=== PATIENT | female | born 1975 | race Caucasian/White ===

== ENCOUNTER 2024-05-12 20:27 | Inpatient (IN) | payer MEDICAID, SELFPAY ==
[2024-05-12 21:14] VITALS: BMI 37.2
[2024-05-12 21:58] VITALS: BP 107/56; PULSE 73; RESP 16; TEMP 36.6; O2SAT 95
[2024-05-12] MEDS: Nicotine Polacrilex 2 MG GUM 4 MG BUCCAL (22:52)
[2024-05-12] MEDS: Acetaminophen 325 MG TABLET 650 MG PO (23:00)
[2024-05-12] MEDS: LORazepam 0.5 MG TABLET PO (23:01)
--- NOTE | 2024-05-13 00:24 | PC.ADMIT ---
Pily Thompson is a 48yo female, admitted on a CV to M3 from [facility] ED for treatment of psychosis/bipolar d/o. Pt has history of SI,manic behavior and psychosis with multiple inpatient admissions. Pt was presented at the ER after she was caught trespassing, evidently she had a shrine set up in her old home, jumped in the shower, was talking to herself, had delusional statements. She denies toxic ingestions or suicidal/homicidal ideation. Toxic screen is positive to [place], denies use of any other substance but states she takes liquor 1-2 times per month. On unit admission process, Pt was initially calm and cooperative but later became irritable and uncooperative with this leader writer. She states I am not psychotic and I will not take any antipsychotics meds, I have a diagnosis of bipolar d/o, I am dehydrated, very tired and want to rest now . She denies SI/HI/AH/VH. She was very irritable and told the RN to get out of her room when offered to sign admission papers. Pt refused to fill/sign any release of information forms/menu/my contact list. Skin check done and v/s stable. Pt reported being safe on the unit and place on 15 minutes check for Safety.
[2024-05-13 07:40] VITALS: BP 126/92; PULSE 86; RESP 14; TEMP 36.7; O2SAT 98
--- NOTE | 2024-05-13 08:48 | HO.PSYADMNOT ---
HPI Date of Service: 05/13/24 Chief Complaint: Schizophrenia Sources of Information: patient interviewed, chart reviewed and crisis/core team assessment reviewed HPI Subjective Notes: Conditional Voluntary Healthcare Proxy: No Guardianship: No Medical Problems Affecting Mental Status: No Narrative: Pily is a 48-year-old white, woman who states that she was kicked out of her housing. She had lived in [place]. 911 was called on her for trespassing on the property that she used to live in. The police when there and found her there. She had made a trying with crosses and was talking to herself. When the police arrived she jumped into the shower and was observed making delusional statements. She was initially not cooperative but when taken to the emergency room she calmed down. She herself is not able to give much pertinent or reliable history. She is quite irritable, angry and refused to answer many questions. Several times she would get up, go to the door but would come back but essentially not able to participate much. She denies any AVH but appears to be responding to internal stimuli. She denies SI/HI. Prior history could not be obtained. She has very little to no insight into her psychiatric problems. She has not able to give much information pertaining to her medication history, what [facility] she may be connected to. She wanted me to put down the name of her Rabbi and somebody else from her orthodox/worship in [facility]: Rabbi Ifeoma Harding and Deyvi Lyons Past Psychiatric History: Several inpatient and outpatient treatment Medical Evaluation Reviewed: Hospitalist Eval Pending REPLACED BY [facility] Family History: Unobtainable Social History: Unobtainable Substance History: Marijuana use Trauma History: Unobtainable Diagnostics Vital Signs (24Hr): Vital Signs - 24 hr 05/12/24 21:58 Temperature 98 F Pulse Rate 73 Respiratory Rate 16 Blood Pressure 107/56 L Pulse Oximetry 95 Oxygen Delivery Method Room Air BMI result Body Mass Index 37.2 Labs 05/13/24 07:57 Labs: Patient had a low potassium in the emergency room, 3.2 which later came up and a new 1 is ordered Meds/Allergies Meds Home Medications ?Medication ?Instructions ?Recorded ?Confirmed ?Type dextroamphetamine-amphetamine 30 30 mg PO DAILY 05/12/24 05/12/24 History mg tablet (Adderall) gabapentin 300 mg capsule 300 mg PO BID pain 05/12/24 05/12/24 History lithium carbonate 450 mg 450 mg PO BID depressive disorder 05/12/24 05/12/24 History tablet,extended release Allergies Allergies Allergy/AdvReac Type Severity Reaction Status Date / Time haloperidol Allergy Unknown Verified 05/12/24 21:13 Mental Status Exam Mental Status Exam Narrative: Patient was seen the morning after her admission. She is alert, oriented to person and place. Speech is pressured. She denies AVH but appears to be responding to internal stimuli. Religiously preoccupied. No SI/HI. Cognitively is very disorganized and could not be assessed formally. Judgment is impaired secondary to current mental status Assessment & Plan Assessment & Plan (1) Schizoaffective disorder, bipolar type: Status: Acute Code(s): F25.0 - Schizoaffective disorder, bipolar type Plan Patient meets criteria for IP LOC for safety and treatment. [place] was resumed and Zyprexa 10 mg q.h.s. and p.r.n. ordered. Admission workup to be done. Outpatient referral to be made. She has here on a CV Patient educated on: diagnosis, medication risk/benefits and substance abuse Reason for continued inpatient stay Substantial Risk for: inability to function and rapid decompensation Statement Statement: I have reviewed the history and physical and performed a pertinent examination on my patient. No changes have occurred unless specified. If the History and Physical was not performed prior to admission, the Hospitalist's service will be consulted for completing the admission physical. Time Spent With Patient Time: Total time managing care of this patient today ____ minutes.
[2024-05-13] MEDS: Lithium Carbonate ER 450 MG TABLET.ER PO ×2 (08:50→22:43)
[2024-05-13] MEDS: Gabapentin 300 MG CAPSULE PO ×2 (08:50→22:43)
[2024-05-13 09:07] LABS: Alanine Aminotransferase 14 U/L (0-31); Alkaline Phosphatase 60 U/L (39-117); Anion Gap 12 (12-20); Aspartate Amino Transferase 14 U/L (5-31); Bilirubin Total 0.8 mg/dL (0.0-1.0); Blood Urea Nitrogen 7 mg/dL (9-16); Calcium 9.4 mg/dL (8.4-10.2); Carbon Dioxide 25 mmol/L (22-29); Chloride 106 mmol/L (96-108); Cholesterol 158 mg/dL (<200); Creatinine Clr Calc Pharmacy 124.4; Estimated Glomerular Filt Rate > 60; Glucose Fasting 98 mg/dL (60-99); HDL Cholesterol 46 mg/dL (>40); LDL Cholesterol Calculated 78 mg/dL (<100); Potassium 3.9 mmol/L (3.3-5.1); Sodium 139 mmol/L (135-145); Total Protein 6.8 g/dL (6.5-8.0); Triglycerides 171 mg/dL (<150)
[2024-05-13 09:23] LABS: TSH reflex Free T4 0.75 uIU/mL (0.32-4.0)
[2024-05-13] MEDS: Nicotine 21 MG PATCH.TD24 TRANSDERMA (09:50)
[2024-05-13] MEDS: Amphetamine Mixed Salts 10 MG TABLET 15 MG PO ×2 (09:51→13:37)
[2024-05-13 10:28] LABS: Estimated Average Glucose 111 mg/dL; Hemoglobin A1C 132.4446 umol/L; Hemoglobin A1c % 5.5 % (<6.0)
--- NOTE | 2024-05-13 11:20 | HO.PM.IMCN ---
History of Present Illness Data of Consult Service Date: 05/13/24 Primary Care Provider: Unknown Physician HPI Reason for consult: Admission H&P Pt is a 48-year-old female with a PMH significant for bipolar disorder who is admitted to M3 psychiatry unit for acute psychosis and disorganized behavior. Patient comes from [facility] in [place], [place] where police Department was called on patient for trespassing. Police Department found patient in her old house in the shower. Patient had apparently also set up some kind of spiritism shrine in the house. Medical consult for admission H&P. Patient seen and evaluated where she appears actively manic, requesting to 1st be able to drink liquid and pressure teeth before starting any interview and exam. Patient initially states is overall healthy, but appears somatically oriented and soon complains of possible undiagnosed MS, weakness in her lower extremities, ?valvular issues? that ?do not really bother me?, among a whole litany of other vague complaints. Patient's speech is pressured and rambling. Patient also possible visual hallucinations, seeing people in the corner of the room. Reports she does not currently have a PCP in the community. Labs reviewed, grossly unremarkable. Vital signs stable. Review of Systems Review of Systems: Unable to obtain due to patient's active [facility] History (Updated 05/13/24 @ 13:42 by PAULETTE Gomes) Hx of cholecystectomy Social History Household Members: None Housing: Homeless Do you presently have visiting nurse or other home services: No Patient Tobacco Use Status: Current everyday Tobacco user Tobacco use type: Cigarette Smoked in Last 30 Days: Yes e-Cigarette/Vaping Use: Never Used Patient Interested in Nicotine Replacement: Yes Patient Given Instructions on How to Stop Smoking: No Second Hand Smoke Exposure: No Use of substances other than those prescribed or required for medical reasons: Yes Substance Use Type: Marijuana Substance Use Frequency: Daily Last Used Substance: Days (ago) Currently Displaying Signs/Symptoms of Drug Intoxication Withdrawal: No Any prior treatment program specific to substance use: No Have you been hit, kicked, punched, or otherwise hurt by someone within the past year? If so, by whom?: No Do you feel safe in your current relationship?: No Current Relationship Is there a partner from a previous relationship who is making you feel unsafe now?: No Are you made to feel afraid or neglected: No Advance Directives: No Advance Directives Information Provided: No Do you have thoughts of harming others: None Do you have a plan to hurt others: No Plan Recently lost weight without trying: No Eating poorly because of decreased appetite: No Nutrition Risks: No Nutritional Risk Patient : No : No Poor oral hygiene: No Meds Allergies Allergy/AdvReac Type Severity Reaction Status Date / Time haloperidol Allergy Unknown Verified 05/12/24 21:13 Active Medications: Current Medications Acetaminophen (Acetaminophen 325 Mg Tablet) 650 mg PO Q6H PRN PRN Reason: Headache/Pain Mild Scale (1-3) Last Admin: 05/12/24 23:00 Dose: 650 mg Al Hydroxide/Mg Hydroxide (Magnesium Hydrox/Alum Hydrox 30 Ml Oral.Susp) 30 ml PO Q6H PRN PRN Reason: Heartburn/Nausea Amphetamine/Dextroamphetamine (Amphetamine Mixed Salts 10 Mg Tablet) 15 mg PO 1300 SONJA Gabapentin (Gabapentin 300 Mg Capsule) 300 mg PO BID [facility] Last Admin: 05/13/24 08:50 Dose: 300 mg Hydroxyzine HCl (Hydroxyzine Hcl 25 Mg Tablet) 25 mg PO Q6H PRN PRN Reason: Anxiety [place] Carbonate ([place] Carbonate Er 450 Mg Tablet.Er) 450 mg PO BID [facility] Last Admin: 05/13/24 08:50 Dose: 450 mg Magnesium Hydroxide (Milk Of Magnesia 30 Ml Oral.Susp) 30 ml PO DAILY PRN PRN Reason: Constipation Nicotine (Nicotine 21 Mg Patch.Td24) 21 mg TRANSDERMA DAILY PRN PRN Reason: smoking cessation Last Admin: 05/13/24 09:50 Dose: 21 mg Nicotine Polacrilex (Nicotine Polacrilex 2 Mg Gum) 4 mg BUCCAL Q2H PRN PRN Reason: Nicotine Cravings Last Admin: 05/12/24 22:52 Dose: 4 mg Olanzapine (Olanzapine 5 Mg Tablet) 5 mg PO TID PRN PRN Reason: agitation Olanzapine (Olanzapine 10 Mg Tablet) 10 mg PO BEDTIME SONJA Trazodone HCl (Trazodone Hcl 50 Mg Tablet) 50 mg PO BEDTIME MRX1 PRN PRN Reason: Insomnia Home Medications ?Medication ?Instructions ?Recorded ?Confirmed ?Last Taken ?Type dextroamphetamine-amphetamine 30 30 mg PO DAILY 05/12/24 05/12/24 Unknown History mg tablet (Adderall) gabapentin 300 mg capsule 300 mg PO BID pain 05/12/24 05/12/24 Unknown History lithium carbonate 450 mg 450 mg PO BID depressive disorder 05/12/24 05/12/24 Unknown History tablet,extended release Physical Exam Vital Signs and Narrative: Vital Signs: Last Vital Signs Temp 98 F 05/12/24 21:58 Pulse 73 05/12/24 21:58 Resp 16 05/12/24 21:58 BP 107/56 L 05/12/24 21:58 Pulse Ox 95 05/12/24 21:58 O2 Del Method Room Air 05/12/24 21:58 BMI result Body Mass Index 37.2 General: Alert, no acute distress Resp: CTA bilaterally CVS: S1, S2, RRR GI: +BS, NT, no distention Skin: Warm, dry Neuro: Cranial nerves II-XII grossly intact bilaterally. Motor grossly intact bilaterally Extremities: No edema Psych: Actively manic, pressured and at times rambling speech Results Labs 05/13/24 07:57 Labs: Laboratory Results - last 24 hr 05/13/24 07:57 Anion Gap 12 Estim Creat Clear Calc 124.4 Estimated GFR > 60 Fasting Glucose 98 Estimat Average Glucose 111 Hemoglobin A1c % 5.5 Calcium 9.4 Total Bilirubin 0.8 AST 14 ALT 14 Alkaline Phosphatase 60 Total Protein 6.8 Albumin 4.0 Triglycerides 171 H Cholesterol 158 LDL Cholesterol, Calc 78 HDL Cholesterol 46 TSH 0.75 Assessment and Plan (1) Medical clearance for psychiatric admission: Status: Acute Plan Pt is a 48-year-old female with a PMH significant for bipolar disorder who is admitted to M3 psychiatry unit for acute psychosis and disorganized behavior. Patient comes from [facility] in [place], [place] where police Department was called on patient for trespassing. Police Department found patient in her old house in the shower. Patient had apparently also set up some kind of spiritism shrine in the house. Medical consult for admission H&P. Mood disorder Plan as per psychiatry Somatic complaints Patient reports overall feeling ?good?, but also worries about many other conditions including MS Patient actively manic at this time and unreliable historian Review of medical records does not indicate significant PMH No further workup or treatment indicated at this time Thank you for allowing us to participate in the care of this patient. Will sign off at this time. If any acute issue or need arises, please re-consult.
[2024-05-13] MEDS: hydrOXYzine HCL 25 MG TABLET PO ×2 (15:16→22:46)
[2024-05-13] MEDS: Acetaminophen 325 MG TABLET 650 MG PO ×2 (15:17→23:26)
[2024-05-13] MEDS: Nicotine Polacrilex 2 MG GUM 4 MG BUCCAL (15:17)
[2024-05-13 20:00] VITALS: BP 133/86; PULSE 97; RESP 17; TEMP 36.8; O2SAT 97
[2024-05-14] MEDS: Nicotine Polacrilex 2 MG GUM 4 MG BUCCAL ×2 (00:25→18:38)
[2024-05-14 08:00] VITALS: BP 120/86; PULSE 86; RESP 18; TEMP 36.8; O2SAT 98
[2024-05-14] MEDS: Gabapentin 300 MG CAPSULE PO ×2 (08:56→20:27)
[2024-05-14] MEDS: Nicotine 21 MG PATCH.TD24 TRANSDERMA (09:26)
[2024-05-14] MEDS: Acetaminophen 325 MG TABLET 650 MG PO ×2 (09:28→18:37)
[2024-05-14] MEDS: Amphetamine Mixed Salts 10 MG TABLET 15 MG PO ×2 (10:53→13:27)
--- NOTE | 2024-05-14 11:05 | P.PNPSI_ITS ---
Subjective Subjective Date of Service: 05/14/24 Reason For Visit: Schizophrenia Subjective Notes: Conditional Voluntary Healthcare Proxy: No Guardianship: No Interim History: Patient was seen and discussed in rounds today. Records and plans were reviewed. She is doing much better and is and much improved mental status. She was able to recognize the problems she was exhibiting yesterday. She was able to sleep. She has been medication compliant. Questions about 2 of her medications discussed. She is much more engaged, less irritable. Still having depression and anxiety. Eating adequately. Her thoughts are much more organized. No SI. No changes were made today Review of Systems Review of Systems Yes all other systems are reviewed and are negative Mental Status Exam Mental Status Exam Narrative: In today's visit she is alert, oriented and pleasant. Normal speech. Good eye contact. Affect is appropriate and varied. No signs of psychosis. Moderate depression present. No AVH. No delusions. No SI/HI. Cognitively much more organized. Judgment is intact Diagnostics Vital Signs (24Hr): Vital Signs - 24 hr 05/13/24 20:00 05/14/24 08:00 Temperature 98.2 F 98.3 F Pulse Rate 97 86 Respiratory Rate 17 18 Blood Pressure 133/86 120/86 Pulse Oximetry 97 98 Oxygen Delivery Method Room Air Room Air BMI result Body Mass Index 37.2 Labs 05/13/24 07:57 Labs: Laboratory Results - last 48 hr 05/13/24 07:57 Sodium 139 Potassium 3.9 Chloride 106 Carbon Dioxide 25 Anion Gap 12 BUN 7 L Creatinine 0.69 Estim Creat Clear Calc 124.4 Estimated GFR > 60 Fasting Glucose 98 Estimat Average Glucose 111 Hemoglobin A1c % 5.5 Calcium 9.4 Total Bilirubin 0.8 AST 14 ALT 14 Alkaline Phosphatase 60 Total Protein 6.8 Albumin 4.0 Triglycerides 171 H Cholesterol 158 LDL Cholesterol, Calc 78 HDL Cholesterol 46 TSH 0.75 Medications Medications Current Medications Acetaminophen (Acetaminophen 325 Mg Tablet) 650 mg PO Q6H PRN PRN Reason: Headache/Pain Mild Scale (1-3) Last Admin: 05/14/24 09:28 Dose: 650 mg Al Hydroxide/Mg Hydroxide (Magnesium Hydrox/Alum Hydrox 30 Ml Oral.Susp) 30 ml PO Q6H PRN PRN Reason: Heartburn/Nausea Amphetamine/Dextroamphetamine (Amphetamine Mixed Salts 10 Mg Tablet) 15 mg PO BID@0800,1300 SONJA Gabapentin (Gabapentin 300 Mg Capsule) 300 mg PO BID [facility] Last Admin: 05/14/24 08:56 Dose: 300 mg Hydroxyzine HCl (Hydroxyzine Hcl 25 Mg Tablet) 25 mg PO Q6H PRN PRN Reason: Anxiety Last Admin: 05/13/24 22:46 Dose: 25 mg [place] Carbonate ([place] Carbonate Er 450 Mg Tablet.Er) 450 mg PO BID [facility] Last Admin: 05/14/24 08:58 Dose: Not Given Magnesium Hydroxide (Milk Of Magnesia 30 Ml Oral.Susp) 30 ml PO DAILY PRN PRN Reason: Constipation Nicotine (Nicotine 21 Mg Patch.Td24) 21 mg TRANSDERMA DAILY PRN PRN Reason: smoking cessation Last Admin: 05/14/24 09:26 Dose: 21 mg Nicotine Polacrilex (Nicotine Polacrilex 2 Mg Gum) 4 mg BUCCAL Q2H PRN PRN Reason: Nicotine Cravings Last Admin: 05/14/24 00:25 Dose: 4 mg Olanzapine (Olanzapine 5 Mg Tablet) 5 mg PO TID PRN PRN Reason: agitation Olanzapine (Olanzapine 10 Mg Tablet) 10 mg PO BEDTIME [facility] Last Admin: 05/13/24 22:36 Dose: Not Given Trazodone HCl (Trazodone Hcl 50 Mg Tablet) 50 mg PO BEDTIME MRX1 PRN PRN Reason: Insomnia Allergies Allergies Allergy/AdvReac Type Severity Reaction Status Date / Time haloperidol Allergy Unknown Verified 05/12/24 21:13 Assessment & Plan Assessment & Plan (1) Medical clearance for psychiatric admission: Status: Acute Code(s): Z00.8 - Encounter for other general examination Plan Pt is a 48-year-old female with a PMH significant for bipolar disorder who is admitted to psychiatry unit for acute psychosis and disorganized behavior. Patient comes from [facility] in [place], [place] where police Department was called on patient for trespassing. Police Department found patient in her old house in the shower. Patient had apparently also set up some kind of restorationist shrine in the house. Medical consult for admission H&P. Mood disorder Plan as per psychiatry Somatic complaints Patient reports overall feeling ?good?, but also worries about many other conditions including MS Patient actively manic at this time and unreliable historian Review of medical records does not indicate significant PMH No further workup or treatment indicated at this time Thank you for allowing us to participate in the care of this patient. Will sign off at this time. If any acute issue or need arises, please re-consult. 05/14: Continue current regimen and plans. Reason for continued inpatient stay Substantial Risk for: med/psych decompensation Time Spent With Patient Time: Total time managing care of this patient today ____ minutes.
[2024-05-14] MEDS: hydrOXYzine HCL 25 MG TABLET PO (18:37)
[2024-05-14 20:20] VITALS: BP 135/85; PULSE 80; RESP 16; TEMP 37.2; O2SAT 96
[2024-05-14] MEDS: Lithium Carbonate ER 450 MG TABLET.ER PO (20:24)
[2024-05-15 07:38] VITALS: BP 116/68; PULSE 70; RESP 14; TEMP 36.7; O2SAT 96
[2024-05-15] MEDS: Acetaminophen 325 MG TABLET 650 MG PO ×3 (08:41→22:31)
[2024-05-15] MEDS: Amphetamine Mixed Salts 10 MG TABLET 15 MG PO ×2 (08:41→13:30)
[2024-05-15] MEDS: Lithium Carbonate ER 450 MG TABLET.ER PO ×2 (08:41→20:59)
[2024-05-15] MEDS: Gabapentin 300 MG CAPSULE PO ×2 (08:41→20:59)
[2024-05-15 09:08] LABS: Lithium 0.29 mmol/L (0.60-1.20)
[2024-05-15] MEDS: Nicotine 21 MG PATCH.TD24 TRANSDERMA (10:00)
--- NOTE | 2024-05-15 13:40 | P.PNPSI_ITS ---
Subjective Subjective Date of Service: 05/15/24 Reason For Visit: Schizophrenia Subjective Notes: Conditional Voluntary Interim History: Reviewed with Dr. Aponte. Active on unit, social with peers. attending groups. Pt reports feeling alright ; pt stated, I'm going to need help either going to a penitentiary or a hotel. I was having a hard time last week, I don't know if the people I were staying with put something in the marijuana I was using. I don't use any other substances . Nursing reports pt had difficulty sleeping last night. Pt reports she would like for the hospital to get in contact with her Rabbi, but she does not have the Rabbi's phone number. Pt denies SI/HI/VH/AH. [place] level 0.29 on 05/15/24. Medication Compliance: Intermittent Side effects from medications: No Attending Groups: Yes Review of Systems Constitutional: Reports as per HPI Eyes: Reports as per HPI Reports as per HPI Cardiovascular: Reports as per HPI Respiratory: Reports as per HPI Gastrointestinal: Reports as per HPI Genitourinary: Reports as per HPI Musculoskeletal: Reports as per HPI Skin/Breast: Reports as per HPI Reports as per HPI Psychiatric: Reports as per HPI Endocrine: Reports as per HPI Hematologic/Lymphatic: Reports as per HPI Allergic/Immunologic: Reports as per HPI Mental Status Exam Mental Status Exam Narrative: Pt is alert and oriented; behavior is cooperative and calm; dressed in casual attire; mood is described as good ; eye contact appropriate; Speech is normal rate, volume and not pressured; thought process is organized; Thought content is on tx; denies SI/HI/VH/AH. Diagnostics Vital Signs (24Hr): Vital Signs - 24 hr 05/14/24 20:20 05/15/24 07:38 Temperature 98.9 F 98.1 F Pulse Rate 80 70 Respiratory Rate 16 14 Blood Pressure 135/85 116/68 Pulse Oximetry 96 96 Oxygen Delivery Method Room Air Room Air BMI result Body Mass Index 37.2 Labs 05/13/24 07:57 Labs: Laboratory Results - last 48 hr 05/15/24 08:51 [place] 0.29 L Medications Medications Current Medications Acetaminophen (Acetaminophen 325 Mg Tablet) 650 mg PO Q6H PRN PRN Reason: Headache/Pain Mild Scale (1-3) Last Admin: 05/15/24 08:41 Dose: 650 mg Al Hydroxide/Mg Hydroxide (Magnesium Hydrox/Alum Hydrox 30 Ml Oral.Susp) 30 ml PO Q6H PRN PRN Reason: Heartburn/Nausea Amphetamine/Dextroamphetamine (Amphetamine Mixed Salts 10 Mg Tablet) 15 mg PO BID@0800,1300 [facility] Last Admin: 05/15/24 13:30 Dose: 15 mg Gabapentin (Gabapentin 300 Mg Capsule) 300 mg PO BID [facility] Last Admin: 05/15/24 08:41 Dose: 300 mg Hydroxyzine HCl (Hydroxyzine Hcl 25 Mg Tablet) 25 mg PO Q6H PRN PRN Reason: Anxiety Last Admin: 05/14/24 18:37 Dose: 25 mg [place] Carbonate ([place] Carbonate Er 450 Mg Tablet.Er) 450 mg PO BID [facility] Last Admin: 05/15/24 08:41 Dose: 450 mg Magnesium Hydroxide (Milk Of Magnesia 30 Ml Oral.Susp) 30 ml PO DAILY PRN PRN Reason: Constipation Nicotine (Nicotine 21 Mg Patch.Td24) 21 mg TRANSDERMA DAILY PRN PRN Reason: smoking cessation Last Admin: 05/15/24 10:00 Dose: 21 mg Nicotine Polacrilex (Nicotine Polacrilex 2 Mg Gum) 4 mg BUCCAL Q2H PRN PRN Reason: Nicotine Cravings Last Admin: 05/14/24 18:38 Dose: 4 mg Olanzapine (Olanzapine 5 Mg Tablet) 5 mg PO TID PRN PRN Reason: agitation Olanzapine (Olanzapine 10 Mg Tablet) 10 mg PO BEDTIME [facility] Last Admin: 05/14/24 20:29 Dose: Not Given Trazodone HCl (Trazodone Hcl 50 Mg Tablet) 50 mg PO BEDTIME MRX1 PRN PRN Reason: Insomnia Allergies Allergies Allergy/AdvReac Type Severity Reaction Status Date / Time haloperidol Allergy Unknown Verified 05/12/24 21:13 Assessment & Plan Assessment & Plan (1) Schizoaffective disorder, bipolar type: Status: Acute Code(s): F25.0 - Schizoaffective disorder, bipolar type Plan Patient meets criteria for IP LOC for safety and treatment. [place] was resumed and Zyprexa 10 mg q.h.s. and p.r.n. ordered. Admission workup to be done. Outpatient referral to be made. She has here on a CV 05/14: Patient was seen and discussed in rounds today. Records and plans were reviewed. She is doing much better and is and much improved mental status. She was able to recognize the problems she was exhibiting yesterday. She was able to sleep. She has been medication compliant. Questions about 2 of her medications discussed. She is much more engaged, less irritable. Still having depression and anxiety. Eating adequately. Her thoughts are much more organized. No SI. No changes were made today. 05/15: Active on unit, social with peers. attending groups. Pt reports feeling alright ; pt stated, I'm going to need help either going to a penitentiary or a hotel. I was having a hard time last week, I don't know if the people I were staying with put something in the marijuana I was using. I don't use any other substances . Nursing reports pt had difficulty sleeping last night. Pt reports she would like for the hospital to get in contact with her Rabbi, but she does not have the Rabbi's phone number. Pt denies SI/HI/VH/AH. [place] level 0.29 on 05/15/24. Patient educated on: diagnosis, medication risk/benefits and substance abuse Informed Consent: understands Reason for continued inpatient stay Substantial Risk for: med/psych decompensation Time Spent With Patient Time: Total time managing care of this patient today _20___ minutes.
[2024-05-15 20:00] VITALS: BP 141/75; PULSE 80; RESP 16; TEMP 36.7; O2SAT 99
[2024-05-15] MEDS: Nicotine Polacrilex 2 MG GUM 4 MG BUCCAL (21:17)
[2024-05-16] MEDS: Nicotine Polacrilex 2 MG GUM 4 MG BUCCAL ×2 (06:44→20:00)
[2024-05-16] MEDS: Acetaminophen 325 MG TABLET 650 MG PO ×3 (06:44→20:57)
[2024-05-16 07:20] VITALS: BP 131/87; PULSE 81; RESP 18; TEMP 36.4; O2SAT 97
[2024-05-16 08:00] VITALS: BP 131/87; PULSE 81; RESP 18; TEMP 36.4; O2SAT 97
[2024-05-16] MEDS: Amphetamine Mixed Salts 10 MG TABLET 15 MG PO ×2 (08:18→14:24)
[2024-05-16] MEDS: Gabapentin 300 MG CAPSULE PO ×2 (08:18→20:57)
[2024-05-16] MEDS: Lithium Carbonate ER 450 MG TABLET.ER PO ×2 (08:18→20:57)
[2024-05-16] MEDS: Nicotine 21 MG PATCH.TD24 TRANSDERMA (11:44)
--- NOTE | 2024-05-16 15:18 | HO.PSYCHPN ---
Subjective Subjective Date of Service: 05/16/24 Reason For Visit: Schizophrenia Subjective Notes: Conditional Voluntary Interim History: Reviewed with Dr. Aponte. Irritable, guarded. refused to meet with T/W. Pt stated, I don't want to talk. I want to be left alone . [place] level 0.29 on 05/15/24. Refused olanzapine. Started: risperidal 1mg PO BID. Will attempt to meet with patient again tomorrow. Medication Compliance: Intermittent Side effects from medications: No Attending Groups: Intermittent Review of Systems Constitutional: Reports as per HPI Eyes: Reports as per HPI Reports as per HPI Cardiovascular: Reports as per HPI Respiratory: Reports as per HPI Gastrointestinal: Reports as per HPI Musculoskeletal: Reports as per HPI Skin/Breast: Reports as per HPI Reports as per HPI Psychiatric: Reports as per HPI Endocrine: Reports as per HPI Hematologic/Lymphatic: Reports as per HPI Allergic/Immunologic: Reports as per HPI Mental Status Exam Mental Status Exam Narrative: Pt is alert and oriented; behavior is guarded, irritable; dressed in casual attire; eye contact appropriate; Speech is normal rate, volume and not pressured; thought process is organized; refusing to meet with T/W. Diagnostics Vital Signs (24Hr): Vital Signs - 24 hr 05/15/24 20:00 05/16/24 07:20 05/16/24 08:00 Temperature 98.0 F 97.5 F 97.5 F Pulse Rate 80 81 81 Respiratory Rate 16 18 18 Blood Pressure 141/75 H 131/87 131/87 Pulse Oximetry 99 97 97 Oxygen Delivery Method Room Air Room Air Room Air BMI result Body Mass Index 37.2 Labs 05/13/24 07:57 Labs: Laboratory Results - last 48 hr 05/15/24 08:51 [place] 0.29 L Medications Medications Current Medications Acetaminophen (Acetaminophen 325 Mg Tablet) 650 mg PO Q6H PRN PRN Reason: Headache/Pain Mild Scale (1-3) Last Admin: 05/16/24 14:29 Dose: 650 mg Al Hydroxide/Mg Hydroxide (Magnesium Hydrox/Alum Hydrox 30 Ml Oral.Susp) 30 ml PO Q6H PRN PRN Reason: Heartburn/Nausea Amphetamine/Dextroamphetamine (Amphetamine Mixed Salts 10 Mg Tablet) 15 mg PO BID@0800,1300 SONJA Last Admin: 05/16/24 14:24 Dose: 15 mg Gabapentin (Gabapentin 300 Mg Capsule) 300 mg PO BID [facility] Last Admin: 05/16/24 08:18 Dose: 300 mg Hydroxyzine HCl (Hydroxyzine Hcl 25 Mg Tablet) 25 mg PO Q6H PRN PRN Reason: Anxiety Last Admin: 05/14/24 18:37 Dose: 25 mg [place] Carbonate ([place] Carbonate Er 450 Mg Tablet.Er) 450 mg PO BID [facility] Last Admin: 05/16/24 08:18 Dose: 450 mg Magnesium Hydroxide (Milk Of Magnesia 30 Ml Oral.Susp) 30 ml PO DAILY PRN PRN Reason: Constipation Nicotine (Nicotine 21 Mg Patch.Td24) 21 mg TRANSDERMA DAILY [facility] Last Admin: 05/16/24 11:44 Dose: 21 mg Nicotine Polacrilex (Nicotine Polacrilex 2 Mg Gum) 4 mg BUCCAL Q2H PRN PRN Reason: Nicotine Cravings Last Admin: 05/16/24 06:44 Dose: 4 mg Olanzapine (Olanzapine 5 Mg Tablet) 5 mg PO TID PRN PRN Reason: agitation Risperidone (Risperidone 1 Mg Tablet) 1 mg PO BID [facility] Trazodone HCl (Trazodone Hcl 50 Mg Tablet) 50 mg PO BEDTIME MRX1 PRN PRN Reason: Insomnia Allergies Allergies Allergy/AdvReac Type Severity Reaction Status Date / Time haloperidol Allergy Unknown Verified 05/12/24 21:13 Assessment & Plan Assessment & Plan (1) Schizoaffective disorder, bipolar type: Status: Acute Code(s): F25.0 - Schizoaffective disorder, bipolar type Plan Patient meets criteria for IP LOC for safety and treatment. [place] was resumed and Zyprexa 10 mg q.h.s. and p.r.n. ordered. Admission workup to be done. Outpatient referral to be made. She has here on a CV 05/14: Patient was seen and discussed in rounds today. Records and plans were reviewed. She is doing much better and is and much improved mental status. She was able to recognize the problems she was exhibiting yesterday. She was able to sleep. She has been medication compliant. Questions about 2 of her medications discussed. She is much more engaged, less irritable. Still having depression and anxiety. Eating adequately. Her thoughts are much more organized. No SI. No changes were made today. 05/15: Active on unit, social with peers. attending groups. Pt reports feeling alright ; pt stated, I'm going to need help either going to a intermediate or a hotel. I was having a hard time last week, I don't know if the people I were staying with put something in the marijuana I was using. I don't use any other substances . Nursing reports pt had difficulty sleeping last night. Pt reports she would like for the hospital to get in contact with her Rabbi, but she does not have the Rabbi's phone number. Pt denies SI/HI/VH/AH. [place] level 0.29 on 05/15/24. 05/16: Irritable, guarded. refused to meet with T/W. Pt stated, I don't want to talk. I want to be left alone . Refused olanzapine. Started: risperidal 1mg PO BID. Will attempt to meet with patient again tomorrow. Patient educated on: medication risk/benefits Reason for continued inpatient stay Substantial Risk for: med/psych decompensation Time Spent With Patient Time: Total time managing care of this patient today _20___ minutes.
[2024-05-16 20:00] VITALS: BP 153/87; PULSE 88; RESP 18; TEMP 37.4; O2SAT 98
[2024-05-16] MEDS: Ibuprofen 600 MG TABLET PO (20:00)
[2024-05-17] MEDS: Ibuprofen 600 MG TABLET PO ×2 (04:25→19:47)
[2024-05-17] MEDS: Acetaminophen 325 MG TABLET 650 MG PO ×2 (04:26→19:48)
--- NOTE | 2024-05-17 04:37 | PC.NURSE ---
Pily specifically requested to take ibuprofen and Tylenol PO prn together. Patient reports the combination of the two reduces her tooth pain to 1/10.
[2024-05-17] MEDS: Nicotine Polacrilex 2 MG GUM 4 MG BUCCAL ×2 (05:01→19:48)
[2024-05-17 07:20] VITALS: BP 129/83; PULSE 77; RESP 18; TEMP 36.8; O2SAT 97
[2024-05-17 08:00] VITALS: BP 129/83; PULSE 77; RESP 18; TEMP 36.8; O2SAT 97
[2024-05-17] MEDS: Nicotine 21 MG PATCH.TD24 TRANSDERMA (08:47)
[2024-05-17] MEDS: Amphetamine Mixed Salts 10 MG TABLET 15 MG PO ×2 (08:48→13:08)
[2024-05-17] MEDS: Lithium Carbonate ER 450 MG TABLET.ER PO ×2 (08:50→21:35)
[2024-05-17] MEDS: Gabapentin 300 MG CAPSULE PO ×2 (08:50→21:30)
--- NOTE | 2024-05-17 10:31 | HO.PSYCHPN ---
Subjective Subjective Date of Service: 05/17/24 Reason For Visit: Schizophrenia Subjective Notes: Conditional Voluntary Interim History: Reviewed with Dr. Aponte. Calm, cooperative. Pt reports feeling good today; pt stated, I'm feeling pretty decent. I slept better last night. I'm hoping I can leave on Wednesday and can go to a long term . Pt denies SI/HI/VH/AH. Refused risperidal. Pt agreed to taking Seroquel; which she has taken in the past. Risks/benefits reviewed. Start: Seroquel 25mg PO BID . Medication Compliance: Yes Side effects from medications: No Attending Groups: Intermittent Review of Systems Constitutional: Reports as per HPI Eyes: Reports as per HPI Reports as per HPI Cardiovascular: Reports as per HPI Respiratory: Reports as per HPI Gastrointestinal: Reports as per HPI Musculoskeletal: Reports as per HPI Skin/Breast: Reports as per HPI Reports as per HPI Psychiatric: Reports as per HPI Endocrine: Reports as per HPI Hematologic/Lymphatic: Reports as per HPI Allergic/Immunologic: Reports as per HPI Mental Status Exam Mental Status Exam Narrative: Pt is alert and oriented; behavior is cooperative and calm; dressed in casual attire; mood is described as good ; eye contact appropriate; Speech is normal rate, volume and not pressured; thought process is organized; Thought content is on discharge; denies SI/HI/VH/AH. Diagnostics Vital Signs (24Hr): Vital Signs - 24 hr 05/16/24 20:00 05/17/24 07:20 05/17/24 08:00 Temperature 99.3 F 98.2 F 98.2 F Pulse Rate 88 77 77 Respiratory Rate 18 18 18 Blood Pressure 153/87 H 129/83 129/83 Pulse Oximetry 98 97 97 Oxygen Delivery Method Room Air Room Air Room Air BMI result Body Mass Index 37.2 Labs 05/13/24 07:57 Medications Medications Current Medications Acetaminophen (Acetaminophen 325 Mg Tablet) 650 mg PO Q6H PRN PRN Reason: Headache/Pain Mild Scale (1-3) Last Admin: 05/17/24 04:26 Dose: 650 mg Al Hydroxide/Mg Hydroxide (Magnesium Hydrox/Alum Hydrox 30 Ml Oral.Susp) 30 ml PO Q6H PRN PRN Reason: Heartburn/Nausea Amphetamine/Dextroamphetamine (Amphetamine Mixed Salts 10 Mg Tablet) 15 mg PO BID@0800,1300 SONJA Last Admin: 05/17/24 08:48 Dose: 15 mg Gabapentin (Gabapentin 300 Mg Capsule) 300 mg PO BID [facility] Last Admin: 05/17/24 08:50 Dose: 300 mg Hydroxyzine HCl (Hydroxyzine Hcl 25 Mg Tablet) 25 mg PO Q6H PRN PRN Reason: Anxiety Last Admin: 05/14/24 18:37 Dose: 25 mg Ibuprofen (Ibuprofen 600 Mg Tablet) 600 mg PO Q8H PRN PRN Reason: Pain, Mild (Pain Scale 1-3) Stop: 05/19/24 23:50 Last Admin: 05/17/24 04:25 Dose: 600 mg [place] Carbonate ([place] Carbonate Er 450 Mg Tablet.Er) 450 mg PO BID [facility] Last Admin: 05/17/24 08:50 Dose: 450 mg Magnesium Hydroxide (Milk Of Magnesia 30 Ml Oral.Susp) 30 ml PO DAILY PRN PRN Reason: Constipation Nicotine (Nicotine 21 Mg Patch.Td24) 21 mg TRANSDERMA DAILY [facility] Last Admin: 05/17/24 08:47 Dose: 21 mg Nicotine Polacrilex (Nicotine Polacrilex 2 Mg Gum) 4 mg BUCCAL Q2H PRN PRN Reason: Nicotine Cravings Last Admin: 05/17/24 05:01 Dose: 4 mg Olanzapine (Olanzapine 5 Mg Tablet) 5 mg PO TID PRN PRN Reason: agitation Risperidone (Risperidone 1 Mg Tablet) 1 mg PO BID [facility] Last Admin: 05/17/24 08:52 Dose: Not Given Trazodone HCl (Trazodone Hcl 50 Mg Tablet) 50 mg PO BEDTIME MRX1 PRN PRN Reason: Insomnia Allergies Allergies Allergy/AdvReac Type Severity Reaction Status Date / Time haloperidol Allergy Unknown Verified 05/12/24 21:13 Assessment & Plan Assessment & Plan (1) Schizoaffective disorder, bipolar type: Status: Acute Code(s): F25.0 - Schizoaffective disorder, bipolar type Plan Patient meets criteria for IP LOC for safety and treatment. [place] was resumed and Zyprexa 10 mg q.h.s. and p.r.n. ordered. Admission workup to be done. Outpatient referral to be made. She has here on a CV 05/14: Patient was seen and discussed in rounds today. Records and plans were reviewed. She is doing much better and is and much improved mental status. She was able to recognize the problems she was exhibiting yesterday. She was able to sleep. She has been medication compliant. Questions about 2 of her medications discussed. She is much more engaged, less irritable. Still having depression and anxiety. Eating adequately. Her thoughts are much more organized. No SI. No changes were made today. 05/15: Active on unit, social with peers. attending groups. Pt reports feeling alright ; pt stated, I'm going to need help either going to a long term or a hotel. I was having a hard time last week, I don't know if the people I were staying with put something in the marijuana I was using. I don't use any other substances . Nursing reports pt had difficulty sleeping last night. Pt reports she would like for the hospital to get in contact with her Rabbi, but she does not have the Rabbi's phone number. Pt denies SI/HI/VH/AH. [place] level 0.29 on 05/15/24. 05/16: Irritable, guarded. refused to meet with T/W. Pt stated, I don't want to talk. I want to be left alone . Refused olanzapine. Started: risperidal 1mg PO BID. Will attempt to meet with patient again tomorrow. 05/17: Calm, cooperative. Pt reports feeling good today; pt stated, I'm feeling pretty decent. I slept better last night. I'm hoping I can leave on Wednesday and can go to a long term . Pt denies SI/HI/VH/AH. Refused risperidal. Pt agreed to taking Seroquel; which she has taken in the past. Risks/benefits reviewed. Start: Seroquel 25mg PO BID . Patient educated on: diagnosis, medication risk/benefits and therapeutic strategies Informed Consent: understands Reason for continued inpatient stay Substantial Risk for: med/psych decompensation Time Spent With Patient Time: Total time managing care of this patient today _20___ minutes.
--- NOTE | 2024-05-17 19:53 | PC.NURSE ---
Patient requested Tylenol PO prn and ibuprofen PO prn together for tooth pain 5/10
[2024-05-17 20:00] VITALS: BP 156/91; PULSE 90; RESP 16; TEMP 36.4; O2SAT 97
[2024-05-18 08:00] VITALS: BP 119/66; PULSE 65; RESP 16; TEMP 36.8; O2SAT 96
[2024-05-18] MEDS: Nicotine 21 MG PATCH.TD24 TRANSDERMA (08:30)
[2024-05-18] MEDS: Gabapentin 300 MG CAPSULE PO ×2 (08:31→21:49)
[2024-05-18] MEDS: Amphetamine Mixed Salts 10 MG TABLET 15 MG PO ×2 (08:31→13:35)
[2024-05-18] MEDS: Lithium Carbonate ER 450 MG TABLET.ER PO (08:32)
--- NOTE | 2024-05-18 09:03 | HO.PSYCHPN ---
Documented by User: Berna Quiroz NP 05/18/24 16:59 Subjective Subjective Date of Service: 05/18/24 Reason For Visit: Schizophrenia Subjective Notes: Conditional Voluntary Interim History: Reviewed with Dr. Aponte. Pt reports feeling good today; pt requesting to be discharged tomorrow. Pt stated, this place is not therapeutic for me. I want to go, be outside, listen to music and smoke cigarettes . Pt reports she plans on going to a senior living tomorrow. Pt denies SI/HI/VH/AH. Per nursing, pt slept 7 hours last night. Pt reports she plans on being medication compliant and following up with outpatient providers. Medication Compliance: Yes Side effects from medications: No Attending Groups: No Review of Systems Constitutional: Reports as per HPI Eyes: Reports as per HPI Reports as per HPI Cardiovascular: Reports as per HPI Respiratory: Reports as per HPI Gastrointestinal: Reports as per HPI Musculoskeletal: Reports as per HPI Skin/Breast: Reports as per HPI Reports as per HPI Psychiatric: Reports as per HPI Endocrine: Reports as per HPI Hematologic/Lymphatic: Reports as per HPI Allergic/Immunologic: Reports as per HPI Mental Status Exam Mental Status Exam Narrative: Pt is alert and oriented; behavior is cooperative and calm; dressed in casual attire; mood is described as good ; eye contact appropriate; Speech is normal rate, volume and not pressured; thought process is organized; Thought content is on discharge; denies SI/HI/VH/AH. Diagnostics Vital Signs (24Hr): Vital Signs - 24 hr 05/17/24 20:00 05/18/24 08:00 Temperature 97.5 F 98.3 F Pulse Rate 90 65 Respiratory Rate 16 16 Blood Pressure 156/91 H 119/66 Pulse Oximetry 97 96 Oxygen Delivery Method Room Air Room Air BMI result Body Mass Index 37.2 Labs 05/13/24 07:57 Medications Medications Current Medications Acetaminophen (Acetaminophen 325 Mg Tablet) 650 mg PO Q6H PRN PRN Reason: Headache/Pain Mild Scale (1-3) Last Admin: 05/17/24 19:48 Dose: 650 mg Al Hydroxide/Mg Hydroxide (Magnesium Hydrox/Alum Hydrox 30 Ml Oral.Susp) 30 ml PO Q6H PRN PRN Reason: Heartburn/Nausea Amphetamine/Dextroamphetamine (Amphetamine Mixed Salts 10 Mg Tablet) 15 mg PO BID@0800,1300 SONJA Last Admin: 05/18/24 08:31 Dose: 15 mg Gabapentin (Gabapentin 300 Mg Capsule) 300 mg PO BID [facility] Last Admin: 05/18/24 08:31 Dose: 300 mg Hydroxyzine HCl (Hydroxyzine Hcl 25 Mg Tablet) 25 mg PO Q6H PRN PRN Reason: Anxiety Last Admin: 05/14/24 18:37 Dose: 25 mg Ibuprofen (Ibuprofen 600 Mg Tablet) 600 mg PO Q8H PRN PRN Reason: Pain, Mild (Pain Scale 1-3) Stop: 05/19/24 23:50 Last Admin: 05/17/24 19:47 Dose: 600 mg [place] Carbonate ([place] Carbonate Er 450 Mg Tablet.Er) 450 mg PO BID [facility] Last Admin: 05/18/24 08:32 Dose: 450 mg Magnesium Hydroxide (Milk Of Magnesia 30 Ml Oral.Susp) 30 ml PO DAILY PRN PRN Reason: Constipation Nicotine (Nicotine 21 Mg Patch.Td24) 21 mg TRANSDERMA DAILY [facility] Last Admin: 05/18/24 08:30 Dose: 21 mg Nicotine Polacrilex (Nicotine Polacrilex 2 Mg Gum) 4 mg BUCCAL Q2H PRN PRN Reason: Nicotine Cravings Last Admin: 05/17/24 19:48 Dose: 4 mg Olanzapine (Olanzapine 5 Mg Tablet) 5 mg PO TID PRN PRN Reason: agitation Quetiapine Fumarate (Quetiapine Fumarate 25 Mg Tablet) 25 mg PO BID [facility] Last Admin: 05/18/24 08:36 Dose: Not Given Trazodone HCl (Trazodone Hcl 50 Mg Tablet) 50 mg PO BEDTIME MRX1 PRN PRN Reason: Insomnia Allergies Allergies Allergy/AdvReac Type Severity Reaction Status Date / Time haloperidol Allergy Unknown Verified 05/12/24 21:13 Assessment & Plan Assessment & Plan (1) Schizoaffective disorder, bipolar type: Status: Acute Code(s): F25.0 - Schizoaffective disorder, bipolar type Plan Patient meets criteria for IP LOC for safety and treatment. [place] was resumed and Zyprexa 10 mg q.h.s. and p.r.n. ordered. Admission workup to be done. Outpatient referral to be made. She has here on a CV 05/14: Patient was seen and discussed in rounds today. Records and plans were reviewed. She is doing much better and is and much improved mental status. She was able to recognize the problems she was exhibiting yesterday. She was able to sleep. She has been medication compliant. Questions about 2 of her medications discussed. She is much more engaged, less irritable. Still having depression and anxiety. Eating adequately. Her thoughts are much more organized. No SI. No changes were made today. 05/15: Active on unit, social with peers. attending groups. Pt reports feeling alright ; pt stated, I'm going to need help either going to a senior living or a hotel. I was having a hard time last week, I don't know if the people I were staying with put something in the marijuana I was using. I don't use any other substances . Nursing reports pt had difficulty sleeping last night. Pt reports she would like for the hospital to get in contact with her Rabbi, but she does not have the Rabbi's phone number. Pt denies SI/HI/VH/AH. [place] level 0.29 on 05/15/24. 05/16: Irritable, guarded. refused to meet with T/W. Pt stated, I don't want to talk. I want to be left alone . Refused olanzapine. Started: risperidal 1mg PO BID. Will attempt to meet with patient again tomorrow. 05/17: Calm, cooperative. Pt reports feeling good today; pt stated, I'm feeling pretty decent. I slept better last night. I'm hoping I can leave on Wednesday and can go to a senior living . Pt denies SI/HI/VH/AH. Refused risperidal. Pt agreed to taking Seroquel; which she has taken in the past. Risks/benefits reviewed. Start: Seroquel 25mg PO BID 05/18: Pt reports feeling good today; pt requesting to be discharged tomorrow. Pt stated, this place is not therapeutic for me. I want to go, be outside, listen to music and smoke cigarettes . Pt reports she plans on going to a senior living tomorrow. Pt denies SI/HI/VH/AH. Per nursing, pt slept 7 hours last night. Pt reports she plans on being medication compliant and following up with outpatient providers. Patient educated on: diagnosis, medication risk/benefits and therapeutic strategies Reason for continued inpatient stay Substantial Risk for: stable for discharge Time Spent With Patient Time: Total time managing care of this patient today _20___ minutes. Documented by User: Ole Aponte MD 05/18/24 17:31 Subjective Subjective Reason For Visit: Schizophrenia Diagnostics Labs 05/13/24 07:57 Assessment & Plan Assessment & Plan (1) Schizoaffective disorder, bipolar type: Status: Acute Code(s): F25.0 - Schizoaffective disorder, bipolar type Plan Patient meets criteria for IP LOC for safety and treatment. [place] was resumed and Zyprexa 10 mg q.h.s. and p.r.n. ordered. Admission workup to be done. Outpatient referral to be made. She has here on a CV 05/14: Patient was seen and discussed in rounds today. Records and plans were reviewed. She is doing much better and is and much improved mental status. She was able to recognize the problems she was exhibiting yesterday. She was able to sleep. She has been medication compliant. Questions about 2 of her medications discussed. She is much more engaged, less irritable. Still having depression and anxiety. Eating adequately. Her thoughts are much more organized. No SI. No changes were made today. 05/15: Active on unit, social with peers. attending groups. Pt reports feeling alright ; pt stated, I'm going to need help either going to a senior living or a hotel. I was having a hard time last week, I don't know if the people I were staying with put something in the marijuana I was using. I don't use any other substances . Nursing reports pt had difficulty sleeping last night. Pt reports she would like for the hospital to get in contact with her Rabbi, but she does not have the Rabbi's phone number. Pt denies SI/HI/VH/AH. [place] level 0.29 on 05/15/24. 05/16: Irritable, guarded. refused to meet with T/W. Pt stated, I don't want to talk. I want to be left alone . Refused olanzapine. Started: risperidal 1mg PO BID. Will attempt to meet with patient again tomorrow. 05/17: Calm, cooperative. Pt reports feeling good today; pt stated, I'm feeling pretty decent. I slept better last night. I'm hoping I can leave on Wednesday and can go to a senior living . Pt denies SI/HI/VH/AH. Refused risperidal. Pt agreed to taking Seroquel; which she has taken in the past. Risks/benefits reviewed. Start: Seroquel 25mg PO BID 05/18: Pt reports feeling good today; pt requesting to be discharged tomorrow. Pt stated, this place is not therapeutic for me. I want to go, be outside, listen to music and smoke cigarettes . Pt reports she plans on going to a senior living tomorrow. Pt denies SI/HI/VH/AH. Per nursing, pt slept 7 hours last night. Pt reports she plans on being medication compliant and following up with outpatient providers. Encourage therapeutic dose of lithium and aftercare
[2024-05-18] MEDS: Nicotine Polacrilex 2 MG GUM 4 MG BUCCAL ×2 (13:04→20:25)
[2024-05-18] MEDS: Ibuprofen 600 MG TABLET PO (19:22)
[2024-05-18 19:30] VITALS: BP 141/94; PULSE 106; RESP 18; TEMP 36.9; O2SAT 98
[2024-05-19] MEDS: Amphetamine Mixed Salts 10 MG TABLET 15 MG PO ×2 (09:14→12:54)
[2024-05-19] MEDS: Gabapentin 300 MG CAPSULE PO (09:14)
[2024-05-19] MEDS: Nicotine 21 MG PATCH.TD24 TRANSDERMA (09:16)
--- NOTE | 2024-05-19 09:26 | P.DS_ITS ---
DS: Providers Provider Date of Service: 05/19/24 Date of admission: 05/12/24 20:27 Date of discharge: 05/19/24 Primary care physician: Unknown Physician Attending physician on admission: Prema Benton Consults: 05/12/24 21:37 Consult to Hospitalist Routine Comment: Consulting Provider: Hospitalist Reason For Exam: admission physical Attending physician on discharge: Ole Aponte Discharging clinician: Berna Quiroz DS: Diagnosis Discharge Diagnosis (1) Schizoaffective disorder, bipolar type: Status: Acute DS: Medications Discharge Medications Home Medications: Previous Rx's ?Medication ?Instructions ?Recorded benztropine 0.5 mg tablet 0.5 mg PO BEDTIME 30 days #30 tabs 05/19/24 dextroamphetamine-amphetamine 15 15 mg PO BID@0830,1330 30 days #60 05/19/24 mg tablet tabs gabapentin 300 mg capsule 300 mg PO BID 30 days #60 caps 05/19/24 lithium carbonate 450 mg 450 mg PO BID 30 days #60 tabs 05/19/24 tablet,extended release quetiapine 25 mg tablet 25 mg PO BID 30 days #60 tabs 05/19/24 Mental Status Exam Mental Status Exam Narrative: Pt is alert and oriented; behavior is cooperative and calm; dressed in casual attire; mood is described as good ; eye contact appropriate; Speech is normal rate, volume and not pressured;Thought content is on discharge; denies SI/HI/VH/AH. Data Data Completed and Pending Completed studies during hospitalization [Text1]: 05/13/24 05/15/24 07:57 08:51 Sodium 139 Potassium 3.9 Chloride 106 Carbon Dioxide 25 Anion Gap 12 BUN 7 L Creatinine 0.69 Estim Creat Clear Calc 124.4 Estimated GFR > 60 Fasting Glucose 98 Estimat Average Glucose 111 Hemoglobin A1c % 5.5 Calcium 9.4 Total Bilirubin 0.8 AST 14 ALT 14 Alkaline Phosphatase 60 Total Protein 6.8 Albumin 4.0 Triglycerides 171 H Cholesterol 158 LDL Cholesterol, Calc 78 HDL Cholesterol 46 TSH 0.75 [place] 0.29 L DS: Summary Hospital Course Hospital Course: Pily is a 48-year-old white, woman who states that she was kicked out of her housing. She had lived in [place]. 911 was called on her for trespassing on the property that she used to live in. The police when there and found her there. She had made a trying with crosses and was talking to herself. When the police arrived she jumped into the shower and was observed making delusional statements. She was initially not cooperative but when taken to the emergency room she calmed down. She herself is not able to give much pertinent or reliable history. She is quite irritable, angry and refused to answer many questions. Several times she would get up, go to the door but would come back but essentially not able to participate much. She denies any AVH but appears to be responding to internal stimuli. She denies SI/HI. Prior history could not be obtained. She has very little to no insight into her psychiatric problems. She has not able to give much information pertaining to her medication history, what [facility] she may be connected to. She wanted me to put down the name of her Rabbi and somebody else from her caodaism/caodaism in [facility]: Rabbi Ifeoma Harding and Deyvi Lyons. Patient meets criteria for IP LOC for safety and treatment. [place] was resumed and Zyprexa 10 mg q.h.s. and p.r.n. ordered. Admission workup to be done. Out patient referral to be made. She has here on a CV. Patient was seen and discussed in rounds today. Records and plans were reviewed. She is doing much better and is and much improved mental status. She was able to recognize the problems she was exhibiting yesterday. She was able to sleep. She has been medication compliant. Questions about 2 of her medications discussed. She is much more engaged, less irritable. Still having depression and anxiety. Eating adequately. Her thoughts are much more organized. No SI. No changes were made today. Active on unit, social with peers. attending groups. Pt reports feeling alright ; pt stated, I'm going to need help either going to a fpc or a hotel. I was having a hard time last week, I don't know if the people I were staying with put something in the marijuana I was using. I don't use any other substances . Nursing reports pt had difficulty sleeping last night. Pt reports she would like for the hospital to get in contact with her Rabbi, but she does not have the Rabbi's phone number. Pt denies SI/HI/VH/AH. [place] level 0.29 on 05/15/24. Irritable, guarded. refused to meet with T/W. Pt stated, I don't want to talk. I want to be left alone . Refused olanzapine. Started: risperidal 1mg PO BID. Will attempt to meet with patient again tomorrow. Calm, cooperative. Pt reports feeling good today; pt stated, I'm feeling pretty decent. I slept better last night. I'm hoping I can leave on Wednesday and can go to a fpc . Pt denies SI/HI/VH/AH. Refused risperidal. Pt agreed to taking Seroquel; which she has taken in the past. Risks/benefits reviewed. Start: Seroquel 25mg PO BID Pt reports feeling good today; pt requesting to be discharged tomorrow. Pt stated, this place is not therapeutic for me. I want to go, be outside, listen to music and smoke cigarettes . Pt reports she plans on going to a fpc tomorrow. Pt denies SI/HI/VH/AH. Per nursing, pt slept 7 hours last night. Pt reports she plans on being medication compliant and following up with outpatient providers. Patient reports feeling good ; and ready for discharge . Pt denies SI/HI/VH/AH. Time spent discussing smoking cessation with patient: 3 to 10 minutes Status at Discharge Cognitive/behavioral status at discharge: Patient was interviewed prior to discharge and found to be fully oriented and without SI or HI. Patient has insight and demonstrates good judgment in terms of wanting to pursue treatment. Patient has a safety plan that includes presenting to the closest ER or calling 911 if feeling unsafe. Functional status at discharge: independent ambulation Overall status at discharge: patient is back to baseline Time Spent with Patient Time attestation: Total time managing care of this patient today _20___ minutes. Time spent: Less than 30 minutes Discharge Plan Discharge Anticipated Discharge Date/Time: 05/19/24 11:00 Patient Disposition: [facility] Discharge Diagnosis: Schizoaffective d/o Referrals: Therapy & Psychiatry [Other] - 1 Week (Please present to the clinic as a walk in, Wednesday through Wednesday between the hours of 8am and 12pm, in order to obtain outpatient mental health providers. ) [facility] [Provider Group] - 1 Week ([facility] has been added to patients chart. Please call [phone] for a follow up appt.) Discharge Medications: New dextroamphetamine-amphetamine 15 mg tablet 15 mg PO BID@0830,1330 30 Days Qty: 60 0RF Rx Instructions: administer doses at least 4-6 hours apart; gabapentin 300 mg Capsule 300 mg PO BID 30 Days Qty: 60 0RF lithium carbonate 450 mg Tablet Extended Release 450 mg PO BID 30 Days Qty: 60 0RF quetiapine 25 mg Tablet 25 mg PO BID 30 Days Qty: 60 0RF benztropine 0.5 mg tablet 0.5 mg PO BEDTIME 30 Days Qty: 30 0RF Discontinued gabapentin 300 mg capsule 300 mg PO BID lithium carbonate 450 mg tablet extended release 450 mg PO BID dextroamphetamine-amphetamine [Adderall] 30 mg tablet 30 mg PO DAILY Discharge Orders: Discharge Order (Routine); Ordered 05/19/24 Ordered By: Berna Quiroz Diet: Regular diet Activity on Discharge: As tolerated Stand Alone Forms: Patient Portal Discharge page, Community Support Print Language: Hong Konger Care Plan Goals: Maintain mood and safe behaviors Take medications as prescribed Practice coping skills Continue with outpatient providers and reach out to them as needed Health Concerns: Mood stability and behaviors Plan of Treatment: Follow up with your PCP, psychiatric provider and other outpatient providers regarding above concerns Take medications as prescribed Assessment: Patient was interviewed prior to discharge and found to be fully oriented and without SI or HI. Patient has insight and demonstrates good judgment in terms of wanting to pursue treatment. Patient has a safety plan that includes presenting to the closest ER or calling 911 if feeling unsafe. Discharge Date/Time: 05/19/24 14:55
[2024-05-19 12:35] LABS: Anion Gap 10 (12-20); Blood Urea Nitrogen 6 mg/dL (9-16); Carbon Dioxide 28 mmol/L (22-29); Chloride 105 mmol/L (96-108); Estimated Glomerular Filt Rate > 60; Potassium 4.1 mmol/L (3.3-5.1); Sodium 139 mmol/L (135-145)
[2024-05-19 12:41] LABS: Lithium 0.23 mmol/L (0.60-1.20)
[2024-05-19] MEDS: Nicotine Polacrilex 2 MG GUM 4 MG BUCCAL (13:00)
[2024-05-19] MEDS: Ibuprofen 600 MG TABLET PO (13:00)
== END 2024-05-19 14:55 | disposition home or self-care (01) | DRG 750 ==
PROVIDERS: Psychiatry & Neurology Psychiatry; Admitting Provider Psychiatry & Neurology Psychiatry; Responsible Provider Registered Nurse; Visit Provider Psychiatry & Neurology Psychiatry
DX: F25.0 Schizoaffective disorder, bipolar type (principal); F17.210 Nicotine dependence, cigarettes, uncomplicated; Z71.6 Tobacco abuse counseling; Z79.899 Other long term (current) drug therapy
CPT/HCPCS: 36415; 80051; 80053; 80061; 80178; 82565; 83036; 84443; 84520

== ENCOUNTER → 2024-05-12 20:27 | Outpatient (BNV) | payer MEDICAID, SELFPAY | PROVIDERS: Admitting Provider Psychiatry & Neurology Psychiatry; Visit Provider Psychiatry & Neurology Psychiatry | DX: F25.0 Schizoaffective disorder, bipolar type (principal) | CPT/HCPCS: 90792; 99231; 99232; 99238 ==

== ENCOUNTER → 2024-05-12 20:27 | Outpatient (BNV) | payer SELFPAY | PROVIDERS: Admitting Provider Psychiatry & Neurology Psychiatry; Visit Provider Student in an Organized Health Care Education/Training Program | DX: Z00.8 Encounter for other general examination (principal) | CPT/HCPCS: 99429 ==